=== PATIENT | male | born 1950 | race Caucasian/White ===

== ENCOUNTER 2018-03-24 13:35 | Emergency (ER) | payer OTHER, BC, MEDICARE ==
[2018-03-24] MEDS ORDERED: Sodium Chloride 0.9% 2.5 ML Syringe FLUSH PRN (13:54)
[2018-03-24] MEDS ORDERED: Sodium Chloride 0.9% 10 ML Syringe FLUSH PRN (13:54)
[2018-03-24] MEDS ORDERED: Sodium Chloride 0.9% 1,000 ML IV SCH (14:00)
--- NOTE | 2018-03-24 14:00 | EDM.PDOC ---
ED HPI GENERAL MEDICAL PROBLEM - General Chief Complaint: General Stated Complaint: FLUID BUILD UP Time Seen by Provider: 03/24/18 16:25 - History of Present Illness INITIAL COMMENTS - FREE TEXT/NARRATIVE: HISTORY AND PHYSICAL: History of present illness: Patient is 67-year-old white male history of hypertension who presents with three-month history of anorexia and increased abdominal swelling and girth he states [facility] and was referred here for evaluation he states in spite of trying to lose weight he has had increasing weight gain and abdominal girth. He denies abdominal pain vomiting diarrhea chest pain shortness of breath or other concern he has no history of renal disease no history of known cardiac disease he has had prior surgery in the form of cholecystectomy and appendectomy. Review of systems: As per history of present illness and below otherwise all systems reviewed and negative. Past medical history: As per history of present illness and as reviewed below otherwise noncontributory. Surgical history: As per history of present illness and as reviewed below otherwise noncontributory. Social history: No reported history of drug or alcohol abuse. Family history: As per history of present illness and as reviewed below otherwise noncontributory. Physical exam: HEENT: Atraumatic, normocephalic, pupils reactive, negative for conjunctival pallor or scleral icterus, mucous membranes moist, throat clear, neck supple, nontender, trachea midline. Lungs: Clear to auscultation, breath sounds equal bilaterally, chest nontender. Heart: S1S2, regular, negative for clicks, rubs, or JVD. Abdomen: Firm, protuberant Nontender, Negative for masses or hepatosplenomegaly. Negative for costovertebral tenderness. Pelvis: Stable nontender. Genitourinary: Deferred. Rectal: Deferred. Extremities: Atraumatic, negative for cords or calf pain. Neurovascular unremarkable. Neuro: Awake, alert, oriented. Cranial nerves II through XII unremarkable. Cerebellum unremarkable. Motor and sensory unremarkable throughout. Exam nonfocal. Diagnostics: CBC CMP troponin BNP PT/INR UA EKG chest x-ray CT abdomen and pelvis with contrast Therapeutics: Saline at 125 mL an hour Impression: #1 anorexia #2 unexplained weight gain and increasing abdominal girth #3 history of hypertension Definitive disposition and diagnosis as appropriate pending reevaluation and review of above. - Related Data Allergies Allergy/AdvReac Type Severity Reaction Status Date / Time morphine Allergy Vomiting Verified 03/24/18 13:56 Home Meds: Home Meds Celecoxib [CeleBREX] 100 mg PO DAILY 03/24/18 [History] Lisinopril 20 mg PO DAILY 03/24/18 [History] ED ROS GENERAL - Review of Systems Review Of Systems: ROS reveals no pertinent complaints other than HPI. ED EXAM, GENERAL - Physical Exam Exam: See Below (dictation) Course - Vital Signs Last Recorded V/S: Last Vital Signs Temp 36.2 C 03/24/18 13:53 Pulse 80 03/24/18 14:50 Resp 14 03/24/18 14:50 BP 149/95 H 03/24/18 14:50 Pulse Ox 96 03/24/18 14:50 - Orders/Labs/Meds Orders: Active Orders 24 hr Category Date Time Status Cardiac Monitoring [RC] . DIRECTED Care 03/24/18 13:52 Active EKG Documentation Completion [RC] STAT Care 03/24/18 13:52 Active Pulse Oximetry [RC] ASDIRECTED Care 03/24/18 13:53 Active UA W/MICROSCOPIC [URIN] Stat Lab 03/24/18 15:10 Ordered Sodium Chloride 0.9% [Normal Saline] 1,000 ml Med 03/24/18 14:00 Active IV STAT Sodium Chloride 0.9% [Saline Flush] Med 03/24/18 13:54 Active 10 ml FLUSH ASDIRECTED PRN Sodium Chloride 0.9% [Saline Flush] Med 03/24/18 13:54 Active 2.5 ml FLUSH ASDIRECTED PRN Saline Lock Insert [OM.PC] Stat Oth 03/24/18 13:52 Ordered Medication Orders Sodium Chloride (Normal Saline) 1,000 mls @ 125 mls/hr IV STAT MONIKA Last Admin: 03/24/18 14:02 Dose: 125 mls/hr Sodium Chloride (Saline Flush) 10 ml FLUSH ASDIRECTED PRN PRN Reason: Keep Vein Open Last Admin: 03/24/18 14:08 Dose: 10 ml Sodium Chloride (Saline Flush) 2.5 ml FLUSH ASDIRECTED PRN PRN Reason: Keep Vein Open Last Admin: 03/24/18 14:08 Dose: 2.5 ml Labs: Laboratory Tests 06/04/18 06/04/18 06/04/18 Range/Units 13:55 13:55 13:55 WBC 11.39 H (4.0-11.0) K/uL RBC 5.27 (4.50-5.90) M/uL Hgb 15.1 (13.0-17.0) g/dL Hct 45.5 (38.0-50.0) % MCV 86.3 (80.0-98.0) fL MCH 28.7 (27.0-32.0) pg MCHC 33.2 (31.0-37.0) g/dL RDW Std Deviation 44.2 (28.0-62.0) fl RDW Coeff of Adelfo 14 (11.0-15.0) % Plt Count 260 (150-400) K/uL MPV 9.90 (7.40-12.00) fL Neut % (Auto) 56.8 (48.0-80.0) % Lymph % (Auto) 31.6 (16.0-40.0) % Young % (Auto) 8.8 (0.0-15.0) % Eos % (Auto) 2.3 (0.0-7.0) % Baso % (Auto) 0.5 (0.0-1.5) % Neut # (Auto) 6.5 H (1.4-5.7) K/uL Lymph # (Auto) 3.6 H (0.6-2.4) K/uL Young # (Auto) 1.0 H (0.0-0.8) K/uL Eos # (Auto) 0.3 (0.0-0.7) K/uL Baso # (Auto) 0.1 (0.0-0.1) K/uL Nucleated RBC % 0.0 /100WBC Nucleated RBCs # 0 K/uL INR 0.98 Sodium 139 (136-148) mmol/L Potassium 4.2 (3.5-5.1) mmol/L Chloride 103 (98-107) mmol/L Carbon Dioxide 28.0 (21.0-32.0) mmol/L BUN 15 (7.0-18.0) mg/dL Creatinine 1.2 (0.8-1.3) mg/dL Est Cr Clr Drug Dosing 51.39 mL/min Estimated GFR (MDRD) > 60.0 ml/min Glucose 181 H (74-106) mg/dL Calcium 9.2 (8.5-10.1) mg/dL Total Bilirubin 0.3 (0.2-1.0) mg/dL AST 43 H (15-37) IU/L ALT 66 H (14-63) IU/L Alkaline Phosphatase 100 (46-116) U/L Troponin I < 0.050 (0.000-0.056) ng/mL B-Natriuretic Peptide (<100) PG/ML Total Protein 7.5 (6.4-8.2) g/dL Albumin 3.7 (3.4-5.0) g/dL Globulin 3.8 H (2.0-3.5) g/dL Albumin/Globulin Ratio 1.0 L (1.3-2.8) Urine Color Urine Appearance Urine pH (5.0-8.0) Ur Specific Lincoln (1.001-1.035) Urine Protein (NEGATIVE) mg/dL Urine Glucose (UA) (NEGATIVE) mg/dL Urine Ketones (NEGATIVE) mg/dL Urine Occult Blood (NEGATIVE) Urine Nitrite (NEGATIVE) Urine Bilirubin (NEGATIVE) Urine Urobilinogen (<2.0) EU/dL Ur Leukocyte Esterase (NEGATIVE) Urine RBC (0-2/HPF) Urine WBC (0-5/HPF) Ur Epithelial Cells (NONE-FEW) Amorphous Sediment (NEGATIVE) Urine Bacteria (NEGATIVE) 03/24/18 03/24/18 Range/Units 13:55 15:10 WBC (4.0-11.0) K/uL RBC (4.50-5.90) M/uL Hgb (13.0-17.0) g/dL Hct (38.0-50.0) % MCV (80.0-98.0) fL MCH (27.0-32.0) pg MCHC (31.0-37.0) g/dL RDW Std Deviation (28.0-62.0) fl RDW Coeff of Adelfo (11.0-15.0) % Plt Count (150-400) K/uL MPV (7.40-12.00) fL Neut % (Auto) (48.0-80.0) % Lymph % (Auto) (16.0-40.0) % Young % (Auto) (0.0-15.0) % Eos % (Auto) (0.0-7.0) % Baso % (Auto) (0.0-1.5) % Neut # (Auto) (1.4-5.7) K/uL Lymph # (Auto) (0.6-2.4) K/uL Young # (Auto) (0.0-0.8) K/uL Eos # (Auto) (0.0-0.7) K/uL Baso # (Auto) (0.0-0.1) K/uL Nucleated RBC % /100WBC Nucleated RBCs # K/uL INR Sodium (136-148) mmol/L Potassium (3.5-5.1) mmol/L Chloride (98-107) mmol/L Carbon Dioxide (21.0-32.0) mmol/L BUN (7.0-18.0) mg/dL Creatinine (0.8-1.3) mg/dL Est Cr Clr Drug Dosing mL/min Estimated GFR (MDRD) ml/min Glucose (74-106) mg/dL Calcium (8.5-10.1) mg/dL Total Bilirubin (0.2-1.0) mg/dL AST (15-37) IU/L ALT (14-63) IU/L Alkaline Phosphatase (46-116) U/L Troponin I (0.000-0.056) ng/mL B-Natriuretic Peptide < 15 (<100) PG/ML Total Protein (6.4-8.2) g/dL Albumin (3.4-5.0) g/dL Globulin (2.0-3.5) g/dL Albumin/Globulin Ratio (1.3-2.8) Urine Color YELLOW Urine Appearance SLT CLOUDY Urine pH 7.0 (5.0-8.0) Ur Specific Lincoln 1.020 (1.001-1.035) Urine Protein NEGATIVE (NEGATIVE) mg/dL Urine Glucose (UA) NEGATIVE (NEGATIVE) mg/dL Urine Ketones NEGATIVE (NEGATIVE) mg/dL Urine Occult Blood NEGATIVE (NEGATIVE) Urine Nitrite NEGATIVE (NEGATIVE) Urine Bilirubin NEGATIVE (NEGATIVE) Urine Urobilinogen 0.2 (<2.0) EU/dL Ur Leukocyte Esterase NEGATIVE (NEGATIVE) Urine RBC 0-1 (0-2/HPF) Urine WBC 0-1 (0-5/HPF) Ur Epithelial Cells OCCASIONAL (NONE-FEW) Amorphous Sediment MODERATE (NEGATIVE) Urine Bacteria RARE (NEGATIVE) Meds: Medications Generic Name Dose Route Start Last Admin Trade Name Freq PRN Reason Stop Dose Admin Sodium Chloride 1,000 mls @ 125 mls/hr 03/24/18 14:00 03/24/18 14:02 Normal Saline IV 125 mls/hr STAT MONIKA Administration Sodium Chloride 10 ml 03/24/18 13:54 03/24/18 14:08 Saline Flush FLUSH 10 ml ASDIRECTED PRN Administration Keep Vein Open Sodium Chloride 2.5 ml 03/24/18 13:54 03/24/18 14:08 Saline Flush FLUSH 2.5 ml ASDIRECTED PRN Administration Keep Vein Open Discontinued Medications Generic Name Dose Route Start Last Admin Trade Name Freq PRN Reason Stop Dose Admin Iopamidol 100 ml 03/24/18 15:28 03/24/18 15:28 Isovue Multipack-370 (76%) IVPUSH 03/24/18 15:29 100 ml ONETIME STA Administration Departure - Departure Time of Disposition: 16:26 Disposition: Home, Self-Care 01 Condition: Good Clinical Impression: History of hypertension, Diverticulosis, Encounter for medical screening examination - Discharge Information Referrals: PCP,None [Primary Care Provider] - Forms: ED Department Discharge Additional Instructions: The following information is given to patients seen in the emergency department who are being discharged to home. This information is to outline your options for follow-up care. We provide all patients seen in our emergency department with a follow-up referral. The need for follow-up, as well as the timing and circumstances, are variable depending upon the specifics of your emergency department visit. If you don't have a primary care physician on staff, we will provide you with a referral. We always advise you to contact your personal physician following an emergency department visit to inform them of the circumstance of the visit and for follow-up with them and/or the need for any referrals to a consulting specialist. The emergency department will also refer you to a specialist when appropriate. This referral assures that you have the opportunity for followup care with a specialist. All of these measure are taken in an effort to provide you with optimal care, which includes your followup. Under all circumstances we always encourage you to contact your private physician who remains a resource for coordinating your care. When calling for followup care, please make the office aware that this follow-up is from your recent emergency room visit. If for any reason you are refused follow-up, please contact the [facility] emergency department at and asked to speak to the emergency department charge nurse. Follow-up private medical doctor: Schedule appointment return as needed as discussed - My Orders Last 24 Hours: My Active Orders 03/24/18 13:52 Cardiac Monitoring [RC] . DIRECTED EKG Documentation Completion [RC] STAT Saline Lock Insert [OM.PC] Stat 03/24/18 13:53 Pulse Oximetry [RC] ASDIRECTED 03/24/18 13:54 Sodium Chloride 0.9% [Saline Flush] 10 ml FLUSH ASDIRECTED PRN Sodium Chloride 0.9% [Saline Flush] 2.5 ml FLUSH ASDIRECTED PRN 03/24/18 14:00 Sodium Chloride 0.9% [Normal Saline] 1,000 ml IV STAT 03/24/18 15:10 UA W/MICROSCOPIC [URIN] Stat - Assessment/Plan Last 24 Hours: My Active Orders 03/24/18 13:52 Cardiac Monitoring [RC] . DIRECTED EKG Documentation Completion [RC] STAT Saline Lock Insert [OM.PC] Stat 03/24/18 13:53 Pulse Oximetry [RC] ASDIRECTED 03/24/18 13:54 Sodium Chloride 0.9% [Saline Flush] 10 ml FLUSH ASDIRECTED PRN Sodium Chloride 0.9% [Saline Flush] 2.5 ml FLUSH ASDIRECTED PRN 03/24/18 14:00 Sodium Chloride 0.9% [Normal Saline] 1,000 ml IV STAT 03/24/18 15:10 UA W/MICROSCOPIC [URIN] Stat
--- NOTE | 2018-03-24 14:38 | CR ---
Portable chest Clinical history: Chest pain and shortness of breath Comparison: January 09, 2008. Findings: There is mild cardiomegaly. Allowing for the lordotic position there is no acute infiltrate failure or volume loss. Impression: Mild cardiomegaly without acute failure or pneumonia
[2018-03-24 14:43] LABS: CHLORIDE,CL 103 mmol/L (98-107); SODIUM,NA 139 mmol/L (136-148)
[2018-03-24] MEDS ORDERED: Iopamidol 755 MG/ML 500 ML Multipack Bottle IVPUSH STA (15:28)
--- NOTE | 2018-03-24 16:10 | CT ---
CT scan of the abdomen and pelvis Clinical history: Abdominal pain Comparison: Prior CT scan January 09, 2008 Findings: Patient was administered intravenous Isovue-370 100 mL and imaged throughout the abdomen an d pelvis Lung bases are clear of significant findings. The graft upper abdominal images demonstrate a fatty en larged liver with normal spleen and pancreas. Patient is undergone prior cholecystectomy. Kidneys and retroperitoneum are normal throughout. Abdomen images demonstrate profound diverticulosis the sigmoid colon without pericolonic inflammation definitive for diverticulitis at this time. No intra-abdominal intracranial fluid. Is a large amount of subcutaneous and intra-abdominal fat. There is no small bowel abnormality. Other than the obesity no abdominal wall pathology is identified in the inguinal regions are free of pathology. Bone window images show no aggressive or destructive lesions. There is bilateral spondylolysis at L5 . Impression: Diverticulosis without diverticulitis identified. Large amount of intra-abdominal and sub cutaneous fat, especially intra-abdominal. Prior cholecystectomy. Fatty liver. Bilateral spondylolysi s at L5 without spondylolisthesis
== END 2018-03-24 16:46 | disposition home or self-care (01) ==
LOC: MW.ED 13:35
DX: K57.30 Diverticulosis of large intestine without perforation or abscess without bleeding (principal); R63.0 Anorexia; I10 Essential (primary) hypertension; I51.7 Cardiomegaly; R63.5 Abnormal weight gain; Z68.41 Body mass index [BMI] 40.0-44.9, adult; Z88.5 Allergy status to narcotic agent; Z79.899 Other long term (current) drug therapy
CPT/HCPCS: 36415; 71045; 74177; 80053; 81001; 83880; 84484; 85025; 85610; 93005; 96360; 96361; 99284; J7040; Q9967

== ENCOUNTER 2020-10-26 07:39 | Day surgery (SDC) | payer BC, MEDICARE ==
[~2020-10-26 07:39] MED LIST: Bupivacaine 0.5% 30 ML SDV ONE; Famotidine 20 MG/2 ML SDV IVPUSH SCH; Lactated Ringers 1,000 ML IV SCH; Scopolamine 1.5 MG Transdermal Patch TRDERM SCH; Sodium Chloride 0.9% 20 ML ONE
[2020-10-26] MEDS ORDERED: ceFAZolin 2 GM in Premix Bag 1 BAG IV SCH (08:00)
[2020-10-26] MEDS ORDERED: Famotidine 20 MG/2 ML SDV ONE (08:46)
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
[2020-10-26] MEDS ORDERED: Ropivacaine 49.25 ML, Ketorolac 30 MG, EPINEPHrine 0.5 MG, cloNIDine 80 MCG in Sodium C... INJECT SCH (09:00)
[2020-10-26] MEDS ORDERED: fentaNYL 250 MCG/5 ML SDV ONE (09:34)
[2020-10-26] MEDS ORDERED: Propofol 200 MG/20 ML SDV ONE ×2 (09:42→11:20)
[2020-10-26] MEDS ORDERED: Ondansetron 4 MG/2 ML SDV ONE (09:42)
[2020-10-26] MEDS ORDERED: Midazolam 1 MG/ML 2 ML SDV ONE ×2 (09:49→10:04)
[2020-10-26] MEDS ORDERED: ceFAZolin 1 GM Vial ONE (10:34)
[2020-10-26] MEDS ORDERED: Sodium Chloride 0.9% 20 ML ONE (10:34)
--- NOTE | 2020-10-26 12:32 | PCM.OPNOTE ---
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
[2020-10-26] MEDS ORDERED: HYDROmorphone 1 MG/ML Syringe IVPUSH ONE (12:51)
[2020-10-26] MEDS ORDERED: Aluminum Hydroxide/Magnesium Hydroxide/Simethicone Susp 30 ML Cup PO PRN (13:03)
[2020-10-26] MEDS ORDERED: Sodium Chloride 0.9% 2.5 ML Syringe FLUSH PRN (13:03)
[2020-10-26] MEDS ORDERED: traMADol 50 MG Tab PO PRN (13:03)
[2020-10-26] MEDS ORDERED: Sodium Chloride 0.9% 10 ML Syringe FLUSH PRN (13:03)
[2020-10-26] MEDS ORDERED: Bisacodyl 10 MG Supp RECTAL PRN (13:03)
[2020-10-26] MEDS ORDERED: Acetaminophen 500 MG Tab PO PRN (13:03)
[2020-10-26] MEDS ORDERED: diphenhydrAMINE 25 MG Cap PO PRN (13:03)
[2020-10-26] MEDS ORDERED: Ondansetron 4 MG/2 ML SDV IVPUSH PRN (13:03)
--- NOTE | 2020-10-26 13:49 | PCM.POSTAN ---
POST ANESTHESIA ASSESSMENT - MENTAL STATUS Mental Status: Alert - VITAL SIGNS Vital Signs: Last Vital Signs Temp 36.5 C 10/26/20 12:56 Pulse 63 10/26/20 13:41 Resp 20 10/26/20 13:41 BP 110/56 L 10/26/20 13:41 Pulse Ox 95 10/26/20 13:41 - RESPIRATORY Respiratory Status: Respiratory Rate WNL Free Text/Narrative:: O2 @ 1L. - CARDIOVASCULAR CV Status: Pulse Rate WNL - GASTROINTESTINAL GI Status: No Symptoms - PAIN Pain Score: 0 (Block inplace.) - POST OP HYDRATION Hydration Status: Adequate & Stable - OBSERVATIONS Free Text/Narrative:: Doing well. Will send and keep on 1L to keep SaO2>93%. No problems noted.
[2020-10-26] MEDS: Ketorolac 15 MG/ML SDV IVPUSH SCH ×2 (14:42→18:36)
--- NOTE | 2020-10-26 14:53 | CR ---
INDICATION: Post right total knee arthroplasty TECHNIQUE: Knee radiograph 3 views right COMPARISON: None FINDINGS: Bone: No acute fractures or aggressive bone lesions are identified. Joint: The patient is status post a total knee arthroplasty with patellar resurfacing. No radiographic evidence of asymmetric polyethylene wear, prosthetic loosening or infection is seen. No significant knee effusion is seen. Soft tissue: Anterior skin faisal, subcutaneous gas and joint gas are present from recent surgery. No radiopaque foreign bodies are seen. IMPRESSION: 1. There is an unremarkable postoperative appearance of the knee arthroplasty. Dictated by: Aidan Bowman MD @ 10/26/2020 14:52:28 (Electronically Signed)
--- NOTE | 2020-10-26 14:54 | OR ---
SURGEON: Dangelo Boss DATE OF PROCEDURE: 10/26/2020 PREOPERATIVE DIAGNOSIS: Right knee primary osteoarthritis. POSTOPERATIVE DIAGNOSIS: Right knee primary osteoarthritis. PROCEDURE: Right knee total knee arthroplasty. PRIMARY SURGEON: Dangelo Boss DO TAPE KELLER OPERATOR: CELESTINO Ordoñez ROLE OF TAPE KELLER OPERATOR: Nurse practitioner, CELESTINO Ordoñez, played an essential role in assisting in this case, helping to position the patient, retract structures as needed, as well as suturing and cutting sutures as indicated. Her presence improved patient's safety and decreased operative time. ANESTHESIA: Spinal plus regional block and conscious sedation. FLUID: Lactated Ringer's solution. ESTIMATED BLOOD LOSS: 50 mL. COMPLICATIONS: None. SPECIMEN: None. DISCHARGE DISPOSITION: Stable to PACU. INSTRUMENTATION: [place] [employer] size 5 femur; size 4 tibial base plate; 9 mm polyethylene tibial insert; and 35 mm medialized dome patella, polyethylene. HISTORY AND INDICATIONS FOR THE PROCEDURE: The patient is well known to me. I had seen him in the clinic. 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 He was found to have a partial MCL tear, meniscus tears, as well as tricompartmental osteoarthritis on plain films and MRI. Preoperative imaging confirmed the above-mentioned diagnosis. Risks and goals of the procedure were explained to the patient. Informed consent was obtained. DETAILS OF PROCEDURE: The patient was seen preoperatively by myself and the Anesthesia staff in the preoperative holding where the operative site was marked. He was brought to the operative suite by Anesthesia staff where spinal plus femoral nerve block was performed. A well-padded tourniquet was placed on the right thigh. All extremities were found to be well padded. A time-out was called identifying the correct patient, the correct procedure, the correct site, and that antibiotics had been given within appropriate period of time. The right lower extremity after prepping and draping was exsanguinated, tourniquet was raised to 250 mmHg for 92 minutes and let down after closure. A midline incision was made four fingerbreadths proximal to the patella down the level of the tibial tubercle. A medial parapatellar arthrotomy was made. Bleeding was controlled with Bovie electrocautery. A full synovectomy was performed. The patella was everted and the knee flexed. Soft tissue around the patella was removed. Two perpendicular sockets were made free-hand. I then placed a 35 mm guide and then drilled my three holes and placed the patellar trial on. I then flexed the knee and used medial and lateral retractors to protect the medial and lateral collateral ligaments and then used a rongeur to remove some cartilage off the notch and then reamed the distal femur. I then used my intramedullary guide, 8 mm, cut at 5-degree valgus, pinned this in place, removed my intramedullary portion of the guide, and then made my distal femoral cut. I then removed the pins and then removed some of the anterior cruciate ligament as well as some of the anterior portion of the medial and lateral meniscus. I then used a posterior condylar guide, 5-degree valgus. This measured a 5. I drilled the two holes and then removed the posterior condylar guide. I then inserted my chamfer guide and tamped this into position. I then made my anterior, posterior, and chamfer cuts. I then removed the guide and then used an osteotome to remove all my bone fragments. I then used my distal notch cutter guide, pinned this in place, and made my cuts using a reciprocating saw. I then removed that portion of the notch with Vida and Bovie electrocautery to free its soft tissue attachments. I then anteriorized the tibia with a fork and then used sharp Hohmanns medial and lateral to protect the collaterals and then used an extramedullary guide, pinned this in place using a 2 mm resection guide. I then removed the proximal 2 mm from the tibia. I could see that this was not going to be adequate, so I again moved my block down and cut another 2 mm. I then removed the extramedullary guide and then used a laminar motor vehicles inspector and then removed the posterior portion of the medial and lateral meniscus as well as using a curved osteotome to remove the posterior osteophytes from medial and lateral condyles. I then anteriorized the tibia and placed a 5 base plate. This was in line with the tibial spine with 0 degree slope. I then placed my polyethylene trial component onto the tibia and then tried to place my femur on. I could tell this was not going to be enough of a cut, so I removed the components again and then made another 2 mm proximal tibial cut. It was very sclerotic on the medial posterior portion of the tibial plateau, so I took my time to make sure that this was an even cut. I then placed my base plate, femur and tibial trial. This provided good balance throughout range of motion. I then placed my tower guide and then reamed the proximal tibia and then tamped it. We then removed all of our components and then cemented, placed cement on our components. After I had placed my components in place, it was evident that there was too much internal rotation on the tibial component, so I removed my components, then removed the cement before it had set up. I then anteriorized the tibia again and protected the collaterals and then went down to a 4, so I could get a better rotation on the tibial component. I reamed and tamped again and then replaced the trial components and then ranged it. This appeared to have a good range of motion and stability. I then removed all the components, copiously irrigated with pulse lavage saline, and then cemented my components in place in full extension. I applied TXA and let the tourniquet down at 92 minutes. I applied clean laps into the wound for compression. No excessive bleeding was found. We then waited for the cement to harden. After that had taken place, I then removed some excess cement using a narrow osteotome and again ranged the knee to make sure that this was stable throughout range of motion and had appropriate rotation, which it did. I then irrigated again with pulse lavage and then again with Betadine infused irrigation. I then applied half a gram of vancomycin powder in the joint and then placed two #5 Ethibond sutures. My assist then closed with a running Stratafix over the parapatellar arthrotomy and then subcutaneously with Stratafix. After irrigating, we placed the other half gram of vancomycin. Skin faisal were then applied followed by fluffs and an Bari wrap. We then placed a ESPERANZA vacuum device on. I did this because his blood sugar was elevated at 158 this morning. He claimed not to have a history of diabetes, however, his A1c was elevated, so I treated him as a diabetic patient. He was allowed to awaken from conscious sedation and then taken to the PACU in stable condition. [id number] / MODL /[id number]
[2020-10-26] MEDS ORDERED: Omeprazole 20 MG Cap.CR PO PRN (15:14)
[2020-10-26] MEDS ORDERED: Glucagon,Human Recombinant 1 MG Vial IM PRN (15:16)
[2020-10-26] MEDS ORDERED: 50% Dextrose in Water 50 ML Syringe IV PRN (15:16)
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
[2020-10-26 15:56] LABS: BLOOD UREA NITROGEN,BUN 19 mg/dL (7.0-18.0); CHLORIDE,CL 106 mmol/L (98-107); GLUCOSE RANDOM 154 mg/dL (74-106); POTASSIUM,K 3.8 mmol/L (3.5-5.1); SODIUM,NA 142 mmol/L (136-148)
[2020-10-26] MEDS: HYDROmorphone 1 MG/ML Syringe IVPUSH PRN ×2 (16:31→20:33)
[2020-10-26] MEDS: Nystatin Topical Powder 15 GM Bottle TOP SCH ×2 (16:32→22:36)
[2020-10-26] MEDS: ceFAZolin 2 GM in Premix Bag 1 BAG IV SCH (18:02)
[2020-10-26] MEDS: Insulin Aspart 100 Units/ML 3 ML Pen SUBCUT SCH (19:03)
[2020-10-26] MEDS: glipiZIDE 5 MG Tab.ER PO SCH (20:02)
[2020-10-26] MEDS: Docusate Sodium 100 MG Cap PO SCH (20:47)
[2020-10-26] MEDS ORDERED: Tamsulosin 0.4 MG Cap.ER PO SCH (21:00)
[2020-10-26] MEDS: Acetaminophen/oxyCODONE 325-5 MG Tab PO PRN (23:27)
[2020-10-27] MEDS: Ketorolac 15 MG/ML SDV IVPUSH SCH (01:48)
[2020-10-27] MEDS: ceFAZolin 2 GM in Premix Bag 1 BAG IV SCH (01:49)
[2020-10-27] MEDS: Nystatin Topical Powder 15 GM Bottle TOP SCH (06:32)
[2020-10-27] MEDS: Insulin Aspart 100 Units/ML 3 ML Pen SUBCUT SCH ×2 (06:35→12:24)
--- NOTE | 2020-10-27 07:04 | PCM48HPAN ---
Post Anesthesia Note - EVALUATION WITHIN 48HRS OF ANESTHETIC Vital Signs in Normal Range: Yes Patient Participated in Evaluation: Yes Respiratory Function Stable: Yes (SaO2 >93%) Airway Patent: Yes Cardiovascular Function Stable: Yes Hydration Status Stable: Yes Pain Control Satisfactory: Yes (Some soreness. Block receeding. Using analgesics.) Nausea and Vomiting Control Satisfactory: Yes Mental Status Recovered: Yes Vital Signs: Last Vital Signs Temp 36.9 C 10/27/20 00:00 Pulse 68 10/27/20 00:00 Resp 18 10/27/20 00:00 BP 128/65 10/27/20 00:00 Pulse Ox 96 10/27/20 00:00 - COMMENTS/OBSERVATIONS Free Text/Narrative:: Doing well as expected. No problems noted.
--- NOTE | 2020-10-27 08:43 | PCM.SURGPN ---
- General Info Date of Service: 10/27/20 (0815) Date of Surgery/Procedure: 10/26/20 (Right TKA) POD#: 1 Admission Diagnosis/Problem: Knee pain Functional Status: Reports: Tolerating Diet (ate supper and just finished breakfast without N/V), Urinating. Denies: Ambulating - Review of Systems General: Denies: Fever Pulmonary: Denies: Shortness of Breath Cardiovascular: Denies: Chest Pain Gastrointestinal: Denies: Nausea, Vomiting Musculoskeletal: Reports: Joint Pain (post operative right knee pain) Neurological: Reports: No Symptoms Psychiatric: Reports: No Symptoms - Patient Data Vitals - Most Recent: Last Vital Signs Temp 36.9 C 10/27/20 00:00 Pulse 68 10/27/20 00:00 Resp 18 10/27/20 00:00 BP 128/65 10/27/20 00:00 Pulse Ox 96 10/27/20 00:00 Weight - Most Recent: 111.584 kg I&O - Last 24 Hours: Intake & Output 10/26/20 10/27/20 10/27/20 22:59 06:59 14:59 Intake Total 1410 680 Output Total 400 870 Balance 1010 -190 Lab Results Last 24 Hrs: Laboratory Results - last 24 hr 10/26/20 10/26/20 10/26/20 Range/Units 08:28 08:32 15:20 WBC 12.52 H (4.0-11.0) K/uL RBC 4.77 (4.50-5.90) M/uL Hgb 13.2 (13.0-17.0) g/dL Hct 42.2 (38.0-50.0) % MCV 88.5 (80.0-98.0) fL MCH 27.7 (27.0-32.0) pg MCHC 31.3 (31.0-37.0) g/dL RDW Std Deviation 46.0 (28.0-62.0) fl RDW Coeff of Adelfo 14 (11.0-15.0) % Plt Count 252 (150-400) K/uL MPV 10.00 (7.40-12.00) fL Neut % (Auto) 64.7 (48.0-80.0) % Lymph % (Auto) 24.1 (16.0-40.0) % [place] % (Auto) 9.6 (0.0-15.0) % Eos % (Auto) 1.4 (0.0-7.0) % Baso % (Auto) 0.2 (0.0-1.5) % Neut # (Auto) 8.1 H (1.4-5.7) K/uL Lymph # (Auto) 3.0 H (0.6-2.4) K/uL [place] # (Auto) 1.2 H (0.0-0.8) K/uL Eos # (Auto) 0.2 (0.0-0.7) K/uL Baso # (Auto) 0.0 (0.0-0.1) K/uL Nucleated RBC % 0.0 /100WBC Nucleated RBCs # 0 K/uL Sodium (136-148) mmol/L Potassium (3.5-5.1) mmol/L Chloride (98-107) mmol/L Carbon Dioxide (21.0-32.0) mmol/L BUN (7.0-18.0) mg/dL Creatinine (0.8-1.3) mg/dL Est Cr Clr Drug Dosing mL/min Estimated GFR (MDRD) ml/min Glucose (74-106) mg/dL POC Glucose 158 H (60-110) mg/dL Calcium (8.5-10.1) mg/dL Magnesium (1.8-2.4) mg/dL Blood Type O POSITIVE Antibody Screen NEGATIVE 10/26/20 10/26/20 10/27/20 Range/Units 15:20 17:59 06:05 WBC (4.0-11.0) K/uL RBC (4.50-5.90) M/uL Hgb 12.6 L (13.0-17.0) g/dL Hct 39.8 (38.0-50.0) % MCV (80.0-98.0) fL MCH (27.0-32.0) pg MCHC (31.0-37.0) g/dL RDW Std Deviation (28.0-62.0) fl RDW Coeff of Adelfo (11.0-15.0) % Plt Count (150-400) K/uL MPV (7.40-12.00) fL Neut % (Auto) (48.0-80.0) % Lymph % (Auto) (16.0-40.0) % [place] % (Auto) (0.0-15.0) % Eos % (Auto) (0.0-7.0) % Baso % (Auto) (0.0-1.5) % Neut # (Auto) (1.4-5.7) K/uL Lymph # (Auto) (0.6-2.4) K/uL [place] # (Auto) (0.0-0.8) K/uL Eos # (Auto) (0.0-0.7) K/uL Baso # (Auto) (0.0-0.1) K/uL Nucleated RBC % /100WBC Nucleated RBCs # K/uL Sodium 142 (136-148) mmol/L Potassium 3.8 (3.5-5.1) mmol/L Chloride 106 (98-107) mmol/L Carbon Dioxide 26.0 (21.0-32.0) mmol/L BUN 19 H (7.0-18.0) mg/dL Creatinine 1.0 (0.8-1.3) mg/dL Est Cr Clr Drug Dosing 59.20 mL/min Estimated GFR (MDRD) > 60.0 ml/min Glucose 154 H (74-106) mg/dL POC Glucose 190 H (60-110) mg/dL Calcium 8.5 (8.5-10.1) mg/dL Magnesium 1.9 (1.8-2.4) mg/dL Blood Type Antibody Screen 10/27/20 Range/Units 06:24 WBC (4.0-11.0) K/uL RBC (4.50-5.90) M/uL Hgb (13.0-17.0) g/dL Hct (38.0-50.0) % MCV (80.0-98.0) fL MCH (27.0-32.0) pg MCHC (31.0-37.0) g/dL RDW Std Deviation (28.0-62.0) fl RDW Coeff of Adelfo (11.0-15.0) % Plt Count (150-400) K/uL MPV (7.40-12.00) fL Neut % (Auto) (48.0-80.0) % Lymph % (Auto) (16.0-40.0) % [place] % (Auto) (0.0-15.0) % Eos % (Auto) (0.0-7.0) % Baso % (Auto) (0.0-1.5) % Neut # (Auto) (1.4-5.7) K/uL Lymph # (Auto) (0.6-2.4) K/uL [place] # (Auto) (0.0-0.8) K/uL Eos # (Auto) (0.0-0.7) K/uL Baso # (Auto) (0.0-0.1) K/uL Nucleated RBC % /100WBC Nucleated RBCs # K/uL Sodium (136-148) mmol/L Potassium (3.5-5.1) mmol/L Chloride (98-107) mmol/L Carbon Dioxide (21.0-32.0) mmol/L BUN (7.0-18.0) mg/dL Creatinine (0.8-1.3) mg/dL Est Cr Clr Drug Dosing mL/min Estimated GFR (MDRD) ml/min Glucose (74-106) mg/dL POC Glucose 116 H (60-110) mg/dL Calcium (8.5-10.1) mg/dL Magnesium (1.8-2.4) mg/dL Blood Type Antibody Screen Med Orders - Current: Current Medications Acetaminophen (Tylenol Extra Strength) 500 mg PO Q6H PRN PRN Reason: Pain Al Hydroxide/Mg Hydroxide (Mag-Al Plus) 30 ml PO Q4H PRN PRN Reason: Indigestion Amlodipine Besylate (Norvasc) 5 mg PO DAILY [facility] Aspirin (Aspirin) 325 mg PO DAILY [facility] Bisacodyl (Dulcolax) 10 mg RECTAL DAILY PRN PRN Reason: Constipation Celecoxib (Celebrex) 200 mg PO DAILY [facility] Dextrose/Water (Dextrose 50% In Water) 50 ml IV ASDIRECTED PRN PRN Reason: Hypoglycemia Diphenhydramine HCl (Benadryl) 25 - 50 mg PO Q6H PRN PRN Reason: Itching Docusate Sodium (Colace) 100 mg PO BID [facility] Last Admin: 10/26/20 20:47 Dose: 100 mg Documented by: Famotidine (Pepcid) 40 mg PO DAILY [facility] Finasteride (Proscar) 5 mg PO DAILY [facility] Glipizide (Glucotrol Xl) 5 mg PO DAILY [facility] Last Admin: 10/26/20 20:02 Dose: 5 mg Documented by: Glucagon (Glucagen) 1 mg IM ASDIRECTED PRN PRN Reason: Hypoglycemia Hydromorphone HCl (Dilaudid) 1 mg IVPUSH Q4H PRN PRN Reason: Pain Last Admin: 10/26/20 20:33 Dose: 1 mg Documented by: Ropivacaine 49.25 ml/Ketorolac Tromethamine 30 mg/Epinephrine HCl 0.5 mg/Clonidine HCl 80 mcg/ Sodium Chloride 75 mls @ 50 mls/sec INJECT ASDIRECTED [facility] Cefazolin Sodium/Dextrose 2 gm (/ Premix) 50 mls @ 100 mls/hr IV ONCALL [facility] Lactated Ringer's (Ringers, Lactated) 1,000 mls @ 100 mls/hr IV ASDIRECTED [facility] Last Admin: 10/26/20 08:30 Dose: 100 mls/hr Documented by: Insulin Aspart (Novolog) 0 unit SUBCUT TIDAC [facility]; Protocol Last Admin: 10/27/20 06:35 Dose: Not Given Documented by: Losartan Potassium (Cozaar) 100 mg PO DAILY [facility] Nystatin (Nystop) 0 gm TOP TID [facility] Last Admin: 10/27/20 06:32 Dose: 1 applic Documented by: Omeprazole (Omeprazole) 20 mg PO ACBREAKFAST PRN PRN Reason: Heartburn Ondansetron HCl (Zofran) 4 mg IVPUSH Q6H PRN PRN Reason: Nausea/Vomiting Oxycodone/Acetaminophen (Percocet 325-5 Mg) 1 - 2 tab PO Q4H PRN PRN Reason: Pain Last Admin: 10/26/20 23:27 Dose: 2 tab Documented by: Polyethylene Glycol (Miralax) 17 gm PO DAILY [facility] Scopolamine (Transderm-Scop) 1.5 mg TRDERM ONARRIVE [facility] Last Admin: 10/26/20 08:41 Dose: 1.5 mg Documented by: Sodium Chloride (Saline Flush) 10 ml FLUSH ASDIRECTED PRN PRN Reason: Keep Vein Open Sodium Chloride (Saline Flush) 2.5 ml FLUSH ASDIRECTED PRN PRN Reason: Keep Vein Open Tamsulosin HCl (Flomax) 0.4 mg PO BEDTIME [facility] Last Admin: 10/26/20 20:47 Dose: 0.4 mg Documented by: Tramadol HCl (Ultram) 50 - 100 mg PO Q6H PRN PRN Reason: Pain Discontinued Medications Bupivacaine HCl (Marcaine 0.5%) Confirm Administered Dose 30 ml .ROUTE .STK-MED ONE Stop: 10/26/20 07:38 Cefazolin Sodium (Ancef) Confirm Administered Dose 2 gm .ROUTE .STK-MED ONE Stop: 10/26/20 10:35 Famotidine (Pepcid) 40 mg IVPUSH ONARRIVE [facility] Last Admin: 10/26/20 08:47 Dose: 40 mg Documented by: Famotidine (Pepcid) Confirm Administered Dose 40 mg .ROUTE .STK-MED ONE Stop: 10/26/20 08:47 Fentanyl (Sublimaze) Confirm Administered Dose 250 mcg .ROUTE .ST-MED ONE Stop: 10/26/20 09:35 Hydromorphone HCl (Dilaudid) 1 mg IVPUSH ONETIME ONE Stop: 10/26/20 12:52 Last Admin: 10/26/20 22:37 Dose: Not Given Documented by: Sodium Chloride (Normal Saline) Confirm Administered Dose 20 mls @ as directed .ROUTE .ST-MED ONE Stop: 10/26/20 07:40 Sodium Chloride (Normal Saline) Confirm Administered Dose 20 mls @ as directed .ROUTE .ST-MED ONE Stop: 10/26/20 10:35 Acetaminophen (Ofirmev) Confirm Administered Dose 100 mls @ as directed .ROUTE .ST-MED ONE Stop: 10/26/20 10:57 Cefazolin Sodium/Dextrose 2 gm (/ Premix) 50 mls @ 100 mls/hr IV Q8H [facility] Stop: 10/27/20 02:29 Last Admin: 10/27/20 01:49 Dose: 100 mls/hr Documented by: Ketorolac Tromethamine (Toradol) 15 mg IVPUSH Q6H [facility] Stop: 10/27/20 05:00 Last Admin: 10/27/20 01:48 Dose: 15 mg Documented by: Lidocaine HCl (Xylocaine-Mpf 1%) Confirm Administered Dose 0 ml .ROUTE .STK-MED ONE Stop: 10/26/20 09:43 Midazolam HCl (Versed 1 Mg/Ml) Confirm Administered Dose 2 mg .ROUTE .STK-MED ONE Stop: 10/26/20 09:50 Midazolam HCl (Versed 1 Mg/Ml) Confirm Administered Dose 2 mg .ROUTE .STK-MED ONE Stop: 10/26/20 10:05 Non-Formulary Medication (Diltiazem Hcl [Diltiazem 24hr Er]) 240 mg PO DAILY [facility] Ondansetron HCl (Zofran) Confirm Administered Dose 4 mg .ROUTE .STK-MED ONE Stop: 10/26/20 09:43 Propofol (Diprivan 20 Ml) Confirm Administered Dose 200 mg .ROUTE .STK-MED ONE Stop: 10/26/20 09:43 Propofol (Diprivan 20 Ml) Confirm Administered Dose 200 mg .ROUTE .STK-MED ONE Stop: 10/26/20 11:21 Tranexamic Acid (Cyklokapron) 1,000 mg TOP ASDIRECTED ONE Stop: 10/26/20 06:01 Last Admin: 10/26/20 06:00 Dose: 1,000 mg Documented by: - Exam Wound/Incisions: Dressing Dry and Intact (ESPERANZA wound vac intact to right knee. Dressing dry without bloody shadows. ESPERANZA blinking green 'OK"), No Drainage. No: Erythema Quality Assessment: DVT Prophylaxis (ASA 325mg will start today, SCDS bilaterally and compression stocking on LLE) General: Alert, Oriented, Cooperative, No Acute Distress Lungs: Normal Respiratory Effort Extremities: Normal Capillary Refill, Other (mild generalized soft tissue sw elling to knee. No erythema, swelling or pain to right calf. Actively wiggles toes and ankle. Sensation grossly intact to RLE). No: Pedal Edema Skin: Warm, Dry Neurological: Normal Speech, Normal Tone Psy/Mental Status: Alert, Normal Affect, Normal Mood Sepsis Event Note - Evaluation Sepsis Screening Result: No Definite Risk - Focused Exam Vital Signs: Vital Signs Temp Pulse Resp BP Pulse Ox 10/27/20 00:00 36.9 C 68 18 128/65 96 10/26/20 22:00 36.9 C 70 18 140/75 95 - Problem List Review Problem List Initiated/Reviewed/Updated: Yes - My Orders Last 24 Hours: Active Orders 24 hr Category Date Time Status Blood Glucose Check, Bedside [] TIDMEALS Care 10/26/20 15:16 Active Communication Order [RC] PRN Care 10/26/20 13:04 Active Cooling Warming Measures [RC] ASDIRECTED Care 10/26/20 13:06 Active Insert Urinary Catheter [OM.PC] Q24H Care 10/26/20 08:00 Ordered Neurovascular Check [RC] Q2HR Care 10/26/20 13:04 Active Notify Provider Consults [RC] ASDIRECTED Care 10/26/20 13:21 Active Notify Provider Vital Signs [RC] ASDIRECTED Care 10/26/20 13:04 Active Oxygen Therapy Adult [Oxygen Therapy] [RC] ASDIRECTED Care 10/26/20 13:42 Active RT Incentive Spirometry [RC] Q1HWA Care 10/26/20 13:04 Active Vital Signs [RC] Q4H Care 10/26/20 13:04 Active Wound Care [RC] DAILY Care 10/26/20 13:04 Active Consult to Physician [CONS] Routine Cons 10/26/20 13:20 Active PT Evaluation and Treatment [CONS] Routine Cons 10/26/20 13:04 Active [employer] Diet [DIET] Diet 10/26/20 Dinner Active HEMOGLOBIN/HEMATOCRIT,HH [HEME] DAILY Lab 10/28/20 06:00 Ordered Acetaminophen [Tylenol Extra Strength] Med 10/26/20 13:03 Active 500 mg PO Q6H PRN Acetaminophen/oxyCODONE [Percocet 325-5 MG] Med 10/26/20 13:03 Active 1 - 2 tab PO Q4H PRN Alum Hydrox/Mag Hydrox/Simeth [Mag-Al Plus] Med 10/26/20 13:03 Active 30 ml PO Q4H PRN Aspirin Med 10/27/20 09:00 Active 325 mg PO DAILY Celecoxib [CeleBREX] Med 10/27/20 09:00 Active 200 mg PO DAILY Dextrose 50% in Water Med 10/26/20 15:16 Active 50 ml IV ASDIRECTED PRN Docusate Sodium [Colace] Med 10/26/20 21:00 Active 100 mg PO BID Famotidine [Pepcid] Med 10/27/20 09:00 Active 40 mg PO DAILY Finasteride [Proscar] Med 10/27/20 09:00 Active 5 mg PO DAILY Glucagon,Human Recombinant [GlucaGen] Med 10/26/20 15:16 Active 1 mg IM ASDIRECTED PRN HYDROmorphone [Dilaudid] Med 10/26/20 13:03 Active 1 mg IVPUSH Q4H PRN Insulin Aspart [NovoLOG] Med 10/26/20 17:00 Active See Protocol SUBCUT TIDAC Losartan [Cozaar] Med 10/27/20 09:00 Active 100 mg PO DAILY Nystatin [Nystop] Med 10/26/20 15:16 Active See Dose Instructions TOP TID Omeprazole Med 10/26/20 15:14 Active 20 mg PO ACBREAKFAST PRN Ondansetron [Zofran] Med 10/26/20 13:03 Active 4 mg IVPUSH Q6H PRN Ropivacaine [Naropin 0.2%] 49.25 ml Med 10/26/20 09:00 Active Ketorolac [Toradol] 30 mg EPINEPHrine [Adrenalin] 0.5 mg cloNIDine [Duraclon] 80 mcg Sodium Chloride 0.9% [Normal Saline] 23.45 ml INJECT ASDIRECTED Sodium Chloride 0.9% [Saline Flush] Med 10/26/20 13:03 Active 10 ml FLUSH ASDIRECTED PRN Sodium Chloride 0.9% [Saline Flush] Med 10/26/20 13:03 Active 2.5 ml FLUSH ASDIRECTED PRN Tamsulosin [Flomax] Med 10/26/20 21:00 Active 0.4 mg PO BEDTIME amLODIPine [Norvasc] Med 10/27/20 09:00 Active 5 mg PO DAILY bisacodyL [Dulcolax] Med 10/26/20 13:03 Active 10 mg RECTAL DAILY PRN ceFAZolin [Ancef] 2 gm Med 10/26/20 08:00 Active Premix Bag 1 bag IV ONCALL diphenhydrAMINE [Benadryl] Med 10/26/20 13:03 Active 25 - 50 mg PO Q6H PRN glipiZIDE [Glucotrol XL] Med 10/26/20 19:15 Active 5 mg PO DAILY polyethylene glycoL 3350 [MiraLAX] Med 10/27/20 09:00 Active 17 gm PO DAILY traMADol [Ultram] Med 10/26/20 13:03 Active 50 - 100 mg PO Q6H PRN Convert IV to Saline Lock [OM.PC] PRN Oth 10/26/20 13:15 Ordered Convert IV to Saline Lock [OM.PC] PRN Oth 10/27/20 13:15 Ordered Ice Therapy [OM.PC] Routine Ot 10/26/20 13:04 Ordered Sequential Compression Device [OM.PC] Routine Ot 10/26/20 08:00 Ordered Medication Orders Acetaminophen (Tylenol Extra Strength) 500 mg PO Q6H PRN PRN Reason: Pain Al Hydroxide/Mg Hydroxide (Mag-Al Plus) 30 ml PO Q4H PRN PRN Reason: Indigestion Amlodipine Besylate (Norvasc) 5 mg PO DAILY [facility] Aspirin (Aspirin) 325 mg PO DAILY [facility] Bisacodyl (Dulcolax) 10 mg RECTAL DAILY PRN PRN Reason: Constipation Celecoxib (Celebrex) 200 mg PO DAILY [facility] Dextrose/Water (Dextrose 50% In Water) 50 ml IV ASDIRECTED PRN PRN Reason: Hypoglycemia Diphenhydramine HCl (Benadryl) 25 - 50 mg PO Q6H PRN PRN Reason: Itching Docusate Sodium (Colace) 100 mg PO BID [facility] Last Admin: 10/26/20 20:47 Dose: 100 mg Documented by: CHARLI Famotidine (Pepcid) 40 mg PO DAILY [facility] Finasteride (Proscar) 5 mg PO DAILY [facility] Glipizide (Glucotrol Xl) 5 mg PO DAILY [facility] Last Admin: 10/26/20 20:02 Dose: 5 mg Documented by: DENIS Glucagon (Glucagen) 1 mg IM ASDIRECTED PRN PRN Reason: Hypoglycemia Hydromorphone HCl (Dilaudid) 1 mg IVPUSH Q4H PRN PRN Reason: Pain Last Admin: 10/26/20 20:33 Dose: 1 mg Documented by: Admin: 10/26/20 16:31 Dose: 1 mg Documented by: DENIS Ropivacaine 49.25 ml/Ketorolac Tromethamine 30 mg/Epinephrine HCl 0.5 mg/Clonidine HCl 80 mcg/ Sodium Chloride 75 mls @ 50 mls/sec INJECT ASDIRECTED [facility] Cefazolin Sodium/Dextrose 2 gm (/ Premix) 50 mls @ 100 mls/hr IV ONCALL [facility] Lactated Ringer's (Ringers, Lactated) 1,000 mls @ 100 mls/hr IV ASDIRECTED [facility] Last Admin: 10/26/20 08:30 Dose: 100 mls/hr Documented by: DOMINIQUE Insulin Aspart (Novolog) 0 unit SUBCUT TIDAC [facility]; Protocol Last Admin: 10/27/20 06:35 Dose: Not Given Documented by: Admin: 10/26/20 19:03 Dose: Not Given Documented by: DENIS Losartan Potassium (Cozaar) 100 mg PO DAILY [facility] Nystatin (Nystop) 0 gm TOP TID [facility] Last Admin: 10/27/20 06:32 Dose: 1 applic Documented by: Admin: 10/26/20 22:36 Dose: Not Given Documented by: Admin: 10/26/20 16:32 Dose: 1 applic Documented by: DENIS Omeprazole (Omeprazole) 20 mg PO ACBREAKFAST PRN PRN Reason: Heartburn Ondansetron HCl (Zofran) 4 mg IVPUSH Q6H PRN PRN Reason: Nausea/Vomiting Oxycodone/Acetaminophen (Percocet 325-5 Mg) 1 - 2 tab PO Q4H PRN PRN Reason: Pain Last Admin: 10/26/20 23:27 Dose: 2 tab Documented by: CHARLI Polyethylene Glycol (Miralax) 17 gm PO DAILY [facility] Scopolamine (Transderm-Scop) 1.5 mg TRDERM ONARRIVE [facility] Last Admin: 10/26/20 08:41 Dose: 1.5 mg Documented by: DOMINIQUE Sodium Chloride (Saline Flush) 10 ml FLUSH ASDIRECTED PRN PRN Reason: Keep Vein Open Sodium Chloride (Saline Flush) 2.5 ml FLUSH ASDIRECTED PRN PRN Reason: Keep Vein Open Tamsulosin HCl (Flomax) 0.4 mg PO BEDTIME [facility] Last Admin: 10/26/20 20:47 Dose: 0.4 mg Documented by: CHARLI Tramadol HCl (Ultram) 50 - 100 mg PO Q6H PRN PRN Reason: Pain - Assessment Assessment (Free Text/Narrative):: 1) s/p RIGHT TKA 2) post-operative anemia (Hg 12.6) 3) candidal infection in groin 4) HTN (hospitalist management) 5) DM II (Hospitalist management) - Plan Plan (Free Text/Narrative):: Silvana is sitting up at the side of his bed, just completed breakfast. c/o he was not able to get comfortable last night d/t some knee pain and because of uncomfortable hospital bed. Voices desire to go home today. VSS/afebrile. Tolerating food/fluids without N/V, and IV fluids have been saline locked already. Antibiotic prophylaxis with Ancef 2gm has been completed overnight. DVT prophylaxis : ASA 325mg will start today, ambulation, bilateral SCDS and compression stockings. ESPERANZA dressing intact, activating, without any drainage. Discussed with Silvana that this dressing will stay on for 1 week, and he will follow up in clinic in 1 week for dressing change, but in the event EPSERANZA is not working over the week end, he is educated to remove and apply large AquaCell, which will be sent home with him. Using [employer] ice at present. Sensation grossly intact to LE. Wigglling toes. He has not yet been up am bulating. If he does well with PT this morning, he can plan discharge home after lunch. Pt previously voiced desire to avoid narcotics (when seen at clinic for optimization visit), but notes today that he will need some pain medications. Discussed use of ES Tylenol if pain is mild, but if pain is moderate to severe, then take Percocet. Advise he take either Tylenol or Percocet TID. Celebrex will also start today to decrease inflammation. Silvana states he has Celebrex prescription at home, and did not want new Rx sent to pharmacy. He also has ASA 325mg at home, instructed to take daily for VTE prophylaxis. Also discussed that he will be discharged with a Rx to treat candidal infection in his groin. States he has been using OTC powder at home, but discussed need to treat this to avert risk of knee infections. Will follow up with staff at noon in regards to how therapy went this morning.
[2020-10-27] MEDS ORDERED: Losartan 50 MG Tab PO SCH (09:00)
[2020-10-27] MEDS ORDERED: Finasteride 5 MG Tab PO SCH (09:00)
[2020-10-27] MEDS ORDERED: Famotidine 20 MG Tab PO SCH (09:00)
[2020-10-27] MEDS ORDERED: Polyethylene Glycol 3350 Powder 17 GM Packet PO SCH (09:00)
[2020-10-27] MEDS ORDERED: Aspirin 325 MG Tab PO SCH (09:00)
[2020-10-27] MEDS ORDERED: amLODIPine 5 MG Tab PO SCH (09:00)
[2020-10-27] MEDS ORDERED: Celecoxib 100 MG Cap PO SCH (09:00)
[2020-10-27] MEDS ORDERED: DILTIAZEM HCL 240 MG PO SCH (09:00)
[2020-10-27] MEDS: glipiZIDE 5 MG Tab.ER PO SCH (09:04)
[2020-10-27] MEDS: Docusate Sodium 100 MG Cap PO SCH (09:05)
[2020-10-27] MEDS: HYDROmorphone 1 MG/ML Syringe IVPUSH PRN (09:19)
--- NOTE | 2020-10-27 12:00 | PCM.DCSUM1 ---
Discharge Summary - Hospital Course Free Text/Narrative:: Silvana had Right Total Knee Arthroplasty 10/26/[address] Dangelo Boss. Admitted to Med/Surg for post-op care and PT. Overall, doing well. Tolerating food/fluids without N/V. Tolerating pain medications without N/V. Afebrile. ESPERANZA wound vac was applied in surgery. This was intact and activating this morning. Ancef 2gm administered prior to incision as prophylactic antibiotic, followed by 2 additional doses overnight. Ambulated with PT this morning in his room, and performed a couple of exercises. At 11:50, he feels ready for discharge. I recommended that he have PT session this afternoon, particularly for step education before going home. Hospitalist services were appreciated for medical management. Home discharge instructions : ASA 325mg daily for VTE prophylaxis (states he bought a bottle and did not need a Rx). Celebrex 200mg daily (states he has Celebrex Rx at home and did not need a Rx). Percocet 5/325mg 1-2 tabs po TID or ES Tylenol 1-2 tabs po TID (Rx depends on level of his pain). Nystatin topical powder for candidal infection in groin. Resume all other home medications for his BP, urinary retention and DM. Discharge instructions detailed written with detailed information on ESPERANZA management followed by AquaCell bandage use. Appts scheduled for 1 week at ortho clinic for removal of wound vac and application of AquaCell, followed then by a 3 week post-op appt for removal of faisal. Silvana informed to call ortho clinic with any acute concerns. - Discharge Data Discharge Date: 10/27/20 Discharge Disposition: Home, Self-Care 01 Condition: Good - Referral to Home Health Primary Care Physician: PCP None - Patient Summary/Data Operative Procedure(s) Performed: r tka Consults: Consultations 10/26/20 13:04 PT Evaluation and Treatment [CONS] Routine 10/26/20 13:20 Consult to Physician [CONS] Routine - Patient Instructions Diet: Diabetic Diet Activity: Apply Ice (use polar care ice therapy often during the day to minimize swelling and decrease pain.), Cough & Deep Breathe, Elevate Extremity (When elevating, please do not place pillow under your knee. Place a pillow under your heel when elevating. ), Full Weight Bearing (use walker when ambulating), No Strenuous Activities Driving: Do Not Drive Showering/Bathing, Other: May shower after wound vac dressing removed. Wound/Incision Care: Do NOT Change Dressing Other/Special Instructions: Compression stockings on every day. Put these on first thing in the morning, and remove before going to bed at night. Constipation is not uncommon after total joint surgery. Take a stool softener and MIRALAX daily to prevent discomfort. (These are available over the counter). You will also have a new prescription at your pharmacy for a topical powder to apply in your groin three times daily until rash resolved. If rash continues beyond 2 weeks, please follow up with your primary care doctor. - Discharge Plan Prescriptions/Med Rec: Nystatin [Nystop] 1 applic TOP TID #1 bottle Acetaminophen/oxyCODONE [Percocet 325-5 MG] 1 - 2 tab PO Q8HR PRN #35 tablet PRN Reason: Pain Home Medications: Home Meds Finasteride 5 mg PO DAILY 10/25/20 [History] Tamsulosin HCl [Flomax] 0.4 mg PO BEDTIME 10/25/20 [History] Losartan [Cozaar] 100 mg PO DAILY 10/26/20 [History] amLODIPine [Norvasc] 2.5 mg PO DAILY 10/26/20 [History] dilTIAZem HCL [Diltiazem 24Hr ER] 240 mg PO DAILY 10/26/20 [History] glipiZIDE [Glucotrol] 5 mg PO DAILY 10/26/20 [History] Acetaminophen [Tylenol Extra Strength] 500 mg PO Q8H PRN #100 tablet 10/27/20 [Rx] Acetaminophen/oxyCODONE [Percocet 325-5 MG] 1 - 2 tab PO Q8HR PRN #35 tablet 10/27/20 [Rx] Aspirin 325 mg PO DAILY tablet 10/27/20 [Rx] Celecoxib [CeleBREX] 200 mg PO DAILY cap 10/27/20 [Rx] Docusate Sodium [Colace] 100 mg PO BID cap 10/27/20 [Rx] Nystatin [Nystop] 1 applic TOP TID #1 bottle 10/27/20 [Rx] Omeprazole 20 mg PO ACBREAKFAST PRN cap.cr 10/27/20 [Rx] glipiZIDE [Glucotrol XL] 5 mg PO DAILY tab.er 10/27/20 [Rx] polyethylene glycoL 3350 [MiraLAX] 17 gm PO DAILY packet 10/27/20 [Rx] Referrals: Anay Dennis NP [Nurse Practitioner] - 11/03/20 11:00 am - Discharge Summary/Plan Comment DC Time >30 min.: Yes - General Info Date of Service: 10/27/20 (1150) Admission Dx/Problem (Free Text: Right knee osteoarthritis s/p Right TKA Functional Status: Reports: Pain Controlled (tolerating pain medications without N/V), Tolerating Diet, Ambulating (ambulating with walker), Urinating - Review of Systems General: Denies: Fever Pulmonary: Denies: Shortness of Breath Cardiovascular: Denies: Chest Pain Gastrointestinal: Denies: Nausea, Vomiting Musculoskeletal: Reports: Joint Pain (postoperative right knee pain), Joint Swelling (minimal soft tissue swelling) Neurological: Reports: No Symptoms Psychiatric: Reports: No Symptoms - Patient Data Vitals - Most Recent: Last Vital Signs Temp 37.8 C 10/27/20 09:01 Pulse 80 10/27/20 09:01 Resp 18 10/27/20 09:01 BP 135/60 10/27/20 09:03 Pulse Ox 92 L 10/27/20 09:01 Weight - Most Recent: 111.584 kg I&O - Last 24 hours: Intake & Output 10/26/20 10/27/20 10/27/20 22:59 06:59 14:59 Intake Total 1410 680 Output Total 400 870 Balance 1010 -190 Lab Results - Last 24 hrs: Laboratory Results - last 24 hr 10/26/20 10/26/20 10/26/20 Range/Units 15:20 15:20 17:59 WBC 12.52 H (4.0-11.0) K/uL RBC 4.77 (4.50-5.90) M/uL Hgb 13.2 (13.0-17.0) g/dL Hct 42.2 (38.0-50.0) % MCV 88.5 (80.0-98.0) fL MCH 27.7 (27.0-32.0) pg MCHC 31.3 (31.0-37.0) g/dL RDW Std Deviation 46.0 (28.0-62.0) fl RDW Coeff of Adelfo 14 (11.0-15.0) % Plt Count 252 (150-400) K/uL MPV 10.00 (7.40-12.00) fL Neut % (Auto) 64.7 (48.0-80.0) % Lymph % (Auto) 24.1 (16.0-40.0) % [place] % (Auto) 9.6 (0.0-15.0) % Eos % (Auto) 1.4 (0.0-7.0) % Baso % (Auto) 0.2 (0.0-1.5) % Neut # (Auto) 8.1 H (1.4-5.7) K/uL Lymph # (Auto) 3.0 H (0.6-2.4) K/uL [place] # (Auto) 1.2 H (0.0-0.8) K/uL Eos # (Auto) 0.2 (0.0-0.7) K/uL Baso # (Auto) 0.0 (0.0-0.1) K/uL Nucleated RBC % 0.0 /100WBC Nucleated RBCs # 0 K/uL Sodium 142 (136-148) mmol/L Potassium 3.8 (3.5-5.1) mmol/L Chloride 106 (98-107) mmol/L Carbon Dioxide 26.0 (21.0-32.0) mmol/L BUN 19 H (7.0-18.0) mg/dL Creatinine 1.0 (0.8-1.3) mg/dL Est Cr Clr Drug Dosing 59.20 mL/min Estimated GFR (MDRD) > 60.0 ml/min Glucose 154 H (74-106) mg/dL POC Glucose 190 H (60-110) mg/dL Calcium 8.5 (8.5-10.1) mg/dL Magnesium 1.9 (1.8-2.4) mg/dL 10/27/20 10/27/20 10/27/20 Range/Units 06:05 06:24 11:41 WBC (4.0-11.0) K/uL RBC (4.50-5.90) M/uL Hgb 12.6 L (13.0-17.0) g/dL Hct 39.8 (38.0-50.0) % MCV (80.0-98.0) fL MCH (27.0-32.0) pg MCHC (31.0-37.0) g/dL RDW Std Deviation (28.0-62.0) fl RDW Coeff of Adelfo (11.0-15.0) % Plt Count (150-400) K/uL MPV (7.40-12.00) fL Neut % (Auto) (48.0-80.0) % Lymph % (Auto) (16.0-40.0) % [place] % (Auto) (0.0-15.0) % Eos % (Auto) (0.0-7.0) % Baso % (Auto) (0.0-1.5) % Neut # (Auto) (1.4-5.7) K/uL Lymph # (Auto) (0.6-2.4) K/uL [place] # (Auto) (0.0-0.8) K/uL Eos # (Auto) (0.0-0.7) K/uL Baso # (Auto) (0.0-0.1) K/uL Nucleated RBC % /100WBC Nucleated RBCs # K/uL Sodium (136-148) mmol/L Potassium (3.5-5.1) mmol/L Chloride (98-107) mmol/L Carbon Dioxide (21.0-32.0) mmol/L BUN (7.0-18.0) mg/dL Creatinine (0.8-1.3) mg/dL Est Cr Clr Drug Dosing mL/min Estimated GFR (MDRD) ml/min Glucose (74-106) mg/dL POC Glucose 116 H 85 (60-110) mg/dL Calcium (8.5-10.1) mg/dL Magnesium (1.8-2.4) mg/dL Med Orders - Current: Current Medications Acetaminophen (Tylenol Extra Strength) 500 mg PO Q6H PRN PRN Reason: Pain Al Hydroxide/Mg Hydroxide (Mag-Al Plus) 30 ml PO Q4H PRN PRN Reason: Indigestion Amlodipine Besylate (Norvasc) 5 mg PO DAILY [facility] Last Admin: 10/27/20 09:03 Dose: 5 mg Documented by: Aspirin (Aspirin) 325 mg PO DAILY [facility] Last Admin: 10/27/20 09:07 Dose: 325 mg Documented by: Bisacodyl (Dulcolax) 10 mg RECTAL DAILY PRN PRN Reason: Constipation Celecoxib (Celebrex) 200 mg PO DAILY [facility] Last Admin: 10/27/20 09:05 Dose: 200 mg Documented by: Dextrose/Water (Dextrose 50% In Water) 50 ml IV ASDIRECTED PRN PRN Reason: Hypoglycemia Diphenhydramine HCl (Benadryl) 25 - 50 mg PO Q6H PRN PRN Reason: Itching Docusate Sodium (Colace) 100 mg PO BID [facility] Last Admin: 10/27/20 09:05 Dose: 100 mg Documented by: Famotidine (Pepcid) 40 mg PO DAILY [facility] Last Admin: 10/27/20 09:04 Dose: Not Given Documented by: Finasteride (Proscar) 5 mg PO DAILY [facility] Last Admin: 10/27/20 09:06 Dose: Not Given Documented by: Glipizide (Glucotrol Xl) 5 mg PO DAILY [facility] Last Admin: 10/27/20 09:04 Dose: 5 mg Documented by: Glucagon (Glucagen) 1 mg IM ASDIRECTED PRN PRN Reason: Hypoglycemia Hydromorphone HCl (Dilaudid) 1 mg IVPUSH Q4H PRN PRN Reason: Pain Last Admin: 10/27/20 09:19 Dose: 1 mg Documented by: Ropivacaine 49.25 ml/Ketorolac Tromethamine 30 mg/Epinephrine HCl 0.5 mg/Clonidine HCl 80 mcg/ Sodium Chloride 75 mls @ 50 mls/sec INJECT ASDIRECTED [facility] Cefazolin Sodium/Dextrose 2 gm (/ Premix) 50 mls @ 100 mls/hr IV ONCALL [facility] Lactated Ringer's (Ringers, Lactated) 1,000 mls @ 100 mls/hr IV ASDIRECTED [facility] Last Admin: 10/26/20 08:30 Dose: 100 mls/hr Documented by: Insulin Aspart (Novolog) 0 unit SUBCUT TIDAC [facility]; Protocol Last Admin: 10/27/20 06:35 Dose: Not Given Documented by: Losartan Potassium (Cozaar) 100 mg PO DAILY [facility] Last Admin: 10/27/20 09:03 Dose: 100 mg Documented by: Nystatin (Nystop) 0 gm TOP TID [facility] Last Admin: 10/27/20 06:32 Dose: 1 applic Documented by: Omeprazole (Omeprazole) 20 mg PO ACBREAKFAST PRN PRN Reason: Heartburn Ondansetron HCl (Zofran) 4 mg IVPUSH Q6H PRN PRN Reason: Nausea/Vomiting Oxycodone/Acetaminophen (Percocet 325-5 Mg) 1 - 2 tab PO Q4H PRN PRN Reason: Pain Last Admin: 10/26/20 23:27 Dose: 2 tab Documented by: Polyethylene Glycol (Miralax) 17 gm PO DAILY [facility] Last Admin: 10/27/20 09:07 Dose: Not Given Documented by: Scopolamine (Transderm-Scop) 1.5 mg TRDERM ONARRIVE [facility] Last Admin: 10/26/20 08:41 Dose: 1.5 mg Documented by: Sodium Chloride (Saline Flush) 10 ml FLUSH ASDIRECTED PRN PRN Reason: Keep Vein Open Sodium Chloride (Saline Flush) 2.5 ml FLUSH ASDIRECTED PRN PRN Reason: Keep Vein Open Tamsulosin HCl (Flomax) 0.4 mg PO BEDTIME [facility] Last Admin: 10/26/20 20:47 Dose: 0.4 mg Documented by: Tramadol HCl (Ultram) 50 - 100 mg PO Q6H PRN PRN Reason: Pain Discontinued Medications Bupivacaine HCl (Marcaine 0.5%) Confirm Administered Dose 30 ml .ROUTE .STK-MED ONE Stop: 10/26/20 07:38 Cefazolin Sodium (Ancef) Confirm Administered Dose 2 gm .ROUTE .STK-MED ONE Stop: 10/26/20 10:35 Famotidine (Pepcid) 40 mg IVPUSH ONARRIVE [facility] Last Admin: 10/26/20 08:47 Dose: 40 mg Documented by: Famotidine (Pepcid) Confirm Administered Dose 40 mg .ROUTE .STK-MED ONE Stop: 10/26/20 08:47 Fentanyl (Sublimaze) Confirm Administered Dose 250 mcg .ROUTE .STK-MED ONE Stop: 10/26/20 09:35 Hydromorphone HCl (Dilaudid) 1 mg IVPUSH ONETIME ONE Stop: 10/26/20 12:52 Last Admin: 10/26/20 22:37 Dose: Not Given Documented by: Sodium Chloride (Normal Saline) Confirm Administered Dose 20 mls @ as directed .ROUTE .STK-MED ONE Stop: 10/26/20 07:40 Sodium Chloride (Normal Saline) Confirm Administered Dose 20 mls @ as directed .ROUTE .STK-MED ONE Stop: 10/26/20 10:35 Acetaminophen (Ofirmev) Confirm Administered Dose 100 mls @ as directed .ROUTE .ST-MED ONE Stop: 10/26/20 10:57 Cefazolin Sodium/Dextrose 2 gm (/ Premix) 50 mls @ 100 mls/hr IV Q8H [facility] Stop: 10/27/20 02:29 Last Admin: 10/27/20 01:49 Dose: 100 mls/hr Documented by: Ketorolac Tromethamine (Toradol) 15 mg IVPUSH Q6H [facility] Stop: 10/27/20 05:00 Last Admin: 10/27/20 01:48 Dose: 15 mg Documented by: Lidocaine HCl (Xylocaine-Mpf 1%) Confirm Administered Dose 0 ml .ROUTE .ST-MED ONE Stop: 10/26/20 09:43 Midazolam HCl (Versed 1 Mg/Ml) Confirm Administered Dose 2 mg .ROUTE .STK-MED ONE Stop: 10/26/20 09:50 Midazolam HCl (Versed 1 Mg/Ml) Confirm Administered Dose 2 mg .ROUTE .ST-MED ONE Stop: 10/26/20 10:05 Non-Formulary Medication (Diltiazem Hcl [Diltiazem 24hr Er]) 240 mg PO DAILY [facility] Ondansetron HCl (Zofran) Confirm Administered Dose 4 mg .ROUTE .STK-MED ONE Stop: 10/26/20 09:43 Propofol (Diprivan 20 Ml) Confirm Administered Dose 200 mg .ROUTE .STK-MED ONE Stop: 10/26/20 09:43 Propofol (Diprivan 20 Ml) Confirm Administered Dose 200 mg .ROUTE .STK-MED ONE Stop: 10/26/20 11:21 Tranexamic Acid (Cyklokapron) 1,000 mg TOP ASDIRECTED ONE Stop: 10/26/20 06:01 Last Admin: 10/26/20 06:00 Dose: 1,000 mg Documented by: - Exam Quality Assessment: Reports: DVT Prophylaxis (ASA 325mg daily, SCDS bilaterally, ambulation and compression stockings) General: Reports: Alert, Oriented, Cooperative, No Acute Distress Lungs: Reports: Normal Respiratory Effort Extremities: Slow Capillary Refill, Other (FLORENCE bandage atop ESPERANZA wound vac CDI). No: Pedal Edema Skin: Reports: Warm, Dry Wound/Incisions: Reports: Dressing Dry and Intact Neurological: Reports: Normal Speech Psy/Mental Status: Reports: Alert, Normal Affect, Normal Mood
[2020-10-27] MEDS: Acetaminophen/oxyCODONE 325-5 MG Tab PO PRN (12:21)
== END 2020-10-27 13:40 | disposition home or self-care (01) ==
LOC: MW.SDS 07:39 → MW.MS 08:58 → MW.SDS 10-27 13:40
PROVIDERS: ATTEND Orthopaedic Surgery
DX: M17.11 Unilateral primary osteoarthritis, right knee (principal); I10 Essential (primary) hypertension; E11.9 Type 2 diabetes mellitus without complications; N40.0 Benign prostatic hyperplasia without lower urinary tract symptoms; E66.9 Obesity, unspecified; Z88.5 Allergy status to narcotic agent; Z79.899 Other long term (current) drug therapy; Z79.82 Long term (current) use of aspirin; Z79.84 Long term (current) use of oral hypoglycemic drugs; Z90.49 Acquired absence of other specified parts of digestive tract; Z98.890 Other specified postprocedural states; Z87.891 Personal history of nicotine dependence; Z68.41 Body mass index [BMI] 40.0-44.9, adult
CPT/HCPCS: 01402; 36415; 73560-26-RT; 73560-RT; 80048; 82962; 83735; 85014; 85018; 85025; 86850; 86900; 86901; 97110-GP; 97116-GP; 97161-GP; A9270-GY; J0131; J0171; J0690; J0735; J1170; J1885; J2001; J2250; J2405; J2704; J2795; J3010; J3490; J7120